=== PATIENT | female | born 1980 | race Two or more races ===

== ENCOUNTER 2016-05-07 14:00 | Emergency (ER) | payer OTHER ==
[~2016-05-07] VITALS: Ht 160 cm; Wt 104.3 kg
[2016-05-07] MEDS ORDERED: ALEV220C2 PO (14:27)
[2016-05-07] MEDS ORDERED: NAPR500T PO (18:59)
[2016-05-07 19:01] VITALS: BP 150/100
--- NOTE | 2016-05-07 21:00 | ECGEPIP ---
Stationary ECG Study [facility] - ED Test Date: 2016-05-07 Pat Name: KATERYNA [place] Department: Room: - Gender: F Ui Application Developer: jon : 1980 Requested By: Dmaaso Esquivel PA-C Order Number: [id number] Reading MD: Maximus Veloz Measurements Intervals Weir Rate: 68 P: 39 OH: 145 QRS: 26 QRSD: 92 T: 26 QT: 382 QTc: 407 Interpretive Statements SINUS RHYTHM Electronically Signed On 05-07-2016 21:00:40 EST by Maximus Veloz
== END 2016-05-07 19:08 | disposition home or self-care (01) ==
LOC: M ED 14:03
DX: R00.2 Palpitations (principal); M25.511 Pain in right shoulder

== ENCOUNTER → 2016-05-23 | Outpatient (REF) | payer OTHER ==
[~2016-05-23] MED LIST: ALEV220C2 PO; NAPR500T PO
[2016-05-23 12:27] LABS: ALBUMIN 3.8 GM/DL (3.2-5.2); ALBUMIN/GLOBULIN RATIO 1.15 (1.00-1.93); ALKALINE PHOSPHATASE 59 U/L (45-117); ALT/SGPT 21 U/L (12-78); ANION GAP 7 MEQ/L (8-16); AST/SGOT 13 U/L (15-37); BILIRUBIN,TOTAL 0.5 MG/DL (0.2-1.0); BLOOD UREA NITROGEN 14 MG/DL (7-18); CARBON DIOXIDE LEVEL 28 MEQ/L (21-32); CHLORIDE LEVEL 106 MEQ/L (98-107); CHOLESTEROL LEVEL 182 MG/DL (<200); CREATININE FOR GFR 0.77 MG/DL (0.55-1.02); FREE T4 0.99 NG/DL (0.76-1.46); GLOMERULAR FILTRATION RATE > 60.0 (>60); GLUCOSE, FASTING 93 MG/DL (70-105); POTASSIUM SERUM 4.5 MEQ/L (3.5-5.1); SODIUM LEVEL 141 MEQ/L (136-145); TOTAL PROTEIN 7.1 GM/DL (6.4-8.2); TRIGLYCERIDES LEVEL 143 MG/DL (<150)
[2016-05-23 12:30] LABS: BASO % 0.5 % (0.0-1.0); EOS % 0.6 % (0.0-3.0); LARGE UNSTAINED CELL # 0.1 K/mm3 (0.0-0.4); LARGE UNSTAINED CELL % 1.1 % (0.0-4.0); LYMPH # 1.6 K/mm3 (1.5-4.5); LYMPH % 24.1 % (24.0-44.0); MEAN CORPUSCULAR HEMOGLOBIN 30.7 pg (27.0-33.0); MEAN CORPUSCULAR HGB CONC 32.7 g/dl (32.0-36.5); MEAN CORPUSCULAR VOLUME 93.9 fl (80.0-96.0); MONO # 0.3 K/mm3 (0.0-0.8); MONO % 4.9 % (0.0-5.0); NEUTROPHILS # 4.6 K/mm3 (1.8-7.7); NEUTROPHILS % 68.8 % (36.0-66.0); PLATELET COUNT, AUTOMATED 269 k/mm3 (150-450); RED CELL DISTRIBUTION WIDTH 12.3 % (11.5-14.5); WHITE BLOOD COUNT 6.7 K/mm3 (4.0-10.0)
== END ==
LOC: M SFHCPLAZ 08:37
PROVIDERS: ATTEND Nurse Practitioner Family
DX: Z00.00 Encounter for general adult medical examination without abnormal findings (principal); R53.83 Other fatigue; Z13.220 Encounter for screening for lipoid disorders; E55.9 Vitamin D deficiency, unspecified

== ENCOUNTER → 2016-11-14 | Outpatient (REF) | payer OTHER | LOC: M SFHCPLAZ 11:33 | PROVIDERS: ATTEND Nurse Practitioner Family | DX: E55.9 Vitamin D deficiency, unspecified (principal); M54.5 Low back pain ==

== ENCOUNTER → 2017-05-03 | Outpatient (CLI) | payer OTHER | LOC: M RAD 16:25 | DX: M54.2 Cervicalgia (principal); M25.512 Pain in left shoulder ==

== ENCOUNTER → 2017-05-03 | Outpatient (REF) | payer OTHER ==
[2017-05-03 18:09] LABS: BASO % 0.4 % (0.0-1.0); EOS % 0.4 % (0.0-3.0); HEMATOCRIT 40.3 % (36.0-47.0); HEMOGLOBIN 13.3 g/dl (12.0-16.0); IMMATURE GRANULOCYTE % 0.1 % (0-3.0); LYMPH # 2.4 10^3/uL (1.5-4.5); LYMPH % 29.9 % (24.0-44.0); MEAN CORPUSCULAR HEMOGLOBIN 30.2 pg (27.0-33.0); MEAN CORPUSCULAR VOLUME 91.4 fl (80.0-96.0); MONO # 0.5 10^3/uL (0.0-0.8); MONO % 6.1 % (0.0-5.0); NEUTROPHILS # 5.1 10^3/uL (1.8-7.7); NEUTROPHILS % 63.1 % (36.0-66.0); PLATELET COUNT, AUTOMATED 262 10^3/uL (150-450); RED BLOOD COUNT 4.41 10^6/uL (4.00-5.40); RED CELL DISTRIBUTION WIDTH 11.9 % (11.5-14.5); WHITE BLOOD COUNT 8.1 10^3/uL (4.0-10.0)
[2017-05-03 19:16] LABS: FREE T4 1.01 NG/DL (0.76-1.46); THYROID STIMULATING HORMONE 0.924 uIU/ML (0.358-3.740)
[2017-05-03 19:47] LABS: TOTAL 25(OH) VITAMIN D 27.1 NG/ML (30.0-100.0); VITAMIN B12 LEVEL 873 PG/ML (247-911)
== END ==
LOC: M SFHCPLAZ 15:51
DX: E55.9 Vitamin D deficiency, unspecified (principal); G50.0 Trigeminal neuralgia; R53.83 Other fatigue

== ENCOUNTER → 2022-10-11 | Outpatient (CLI) | payer BC ==
[~2022-10-11] MED LIST changes: +NAPR-837 PO; -NAPR500T PO
[2022-10-11 15:56] LABS: BASO # 0.1 10^3/uL (0.0-0.2); BASO % 0.6 % (0.0-1.0); EOS % 0.2 % (0.0-3.0); HEMATOCRIT 41.1 % (36.0-47.0); HEMOGLOBIN 13.4 g/dl (12.0-15.5); LYMPH # 2.5 10^3/uL (1.5-5.0); LYMPH % 30.2 % (24.0-44.0); MEAN CORPUSCULAR HEMOGLOBIN 31.3 pg (27.0-33.0); MEAN CORPUSCULAR HGB CONC 32.6 g/dl (32.0-36.5); MONO # 0.5 10^3/uL (0.0-0.8); MONO % 5.6 % (2.0-8.0); NEUTROPHILS # 5.1 10^3/uL (1.5-8.5); NEUTROPHILS % 63.2 % (36.0-66.0); PLATELET COUNT, AUTOMATED 290 10^3/uL (150-450); RED BLOOD COUNT 4.28 10^6/uL (4.00-5.40); WHITE BLOOD COUNT 8.1 10^3/uL (4.0-10.0)
[2022-10-11 16:21] LABS: THYROID STIMULATING HORMONE 0.814 uIU/ML (0.55-4.78); TOTAL 25(OH) VITAMIN D 27.9 NG/ML (20.0-100.0)
[2022-10-11 16:22] LABS: RHEUMATOID FACTOR QUANT < 3.5 IU/ML (<14)
[2022-10-11 16:23] LABS: ALBUMIN 3.7 G/DL (3.2-5.2); ALKALINE PHOSPHATASE 67 U/L (46-116); ALT/SGPT 12 U/L (7.0-40); AST/SGOT < 8 U/L (<34); BILIRUBIN,TOTAL 0.5 MG/DL (0.3-1.2); BLOOD UREA NITROGEN 17 MG/DL (9-23); CALCIUM LEVEL 9.6 MG/DL (8.5-10.1); CARBON DIOXIDE LEVEL 25 MMOL/L (20-31); CHLORIDE LEVEL 107 MMOL/L (98-107); CREATININE FOR GFR 0.78 MG/DL (0.55-1.30); GLOMERULAR FILTRATION RATE > 60.0 (>58); GLUCOSE, FASTING 81 MG/DL (60-100); POTASSIUM SERUM 4.9 MMOL/L (3.5-5.1); SODIUM LEVEL 141 MMOL/L (136-145); TOTAL PROTEIN 6.8 G/DL (5.7-8.2)
[2022-10-11 16:35] LABS: ERYTHROCYTE SEDIMENTATION RATE 38 mm/hr (0-20)
== END ==
LOC: M PLALAB 14:27
PROVIDERS: ATTEND Psychiatry & Neurology Neurology
DX: R51.9 Headache, unspecified (principal)

== ENCOUNTER → 2023-10-04 | Outpatient (CLI) | payer BC ==
[2023-10-04 15:41] LABS: BASO # 0.1 10^3/uL (0.0-0.2); BASO % 0.6 % (0.0-1.0); EOS % 0.4 % (0.0-3.0); HEMATOCRIT 40.3 % (36.0-47.0); HEMOGLOBIN 13.1 g/dl (12.0-15.5); LYMPH # 2.3 10^3/uL (1.5-5.0); LYMPH % 24.7 % (24.0-44.0); MEAN CORPUSCULAR HEMOGLOBIN 30.8 pg (27.0-33.0); MEAN CORPUSCULAR HGB CONC 32.5 g/dl (32.0-36.5); MEAN CORPUSCULAR VOLUME 94.8 fl (80.0-96.0); MONO # 0.8 10^3/uL (0.0-0.8); MONO % 7.9 % (2.0-8.0); NEUTROPHILS # 6.3 10^3/uL (1.5-8.5); NEUTROPHILS % 66.2 % (36.0-66.0); PLATELET COUNT, AUTOMATED 279 10^3/uL (150-450); RED BLOOD COUNT 4.25 10^6/uL (4.00-5.40); WHITE BLOOD COUNT 9.5 10^3/uL (4.0-10.0)
[2023-10-04 15:44] LABS: ALBUMIN 3.8 G/DL (3.2-5.2); ALKALINE PHOSPHATASE 57 U/L (46-116); ALT/SGPT 30 U/L (7.0-40); AST/SGOT 16 U/L (<34); BILIRUBIN,TOTAL 0.4 MG/DL (0.3-1.2); BLOOD UREA NITROGEN 17 MG/DL (9-23); CALCIUM LEVEL 9.3 MG/DL (8.5-10.1); CARBON DIOXIDE LEVEL 26 MMOL/L (20-31); CHLORIDE LEVEL 108 MMOL/L (98-107); GLOMERULAR FILTRATION RATE > 60.0 (>58); GLUCOSE, FASTING 93 MG/DL (60-100); POTASSIUM SERUM 4.3 MMOL/L (3.5-5.1); RHEUMATOID FACTOR QUANT 6.3 IU/ML (<14); SODIUM LEVEL 138 MMOL/L (136-145); TOTAL PROTEIN 6.7 G/DL (5.7-8.2)
[2023-10-04 15:46] LABS: THYROID STIMULATING HORMONE 0.764 uIU/ML (0.55-4.78); TOTAL 25(OH) VITAMIN D 34.7 NG/ML (20.0-100.0)
[2023-10-04 16:03] LABS: ERYTHROCYTE SEDIMENTATION RATE 22 mm/hr (0-20)
[2023-10-08 13:37] LABS: ANA PATTERN Nuclear, Homogeneous (NEGATIVE); ANA SCREEN, IFA POSITIVE (NEGATIVE)
== END ==
LOC: M PLALAB 13:43
PROVIDERS: ATTEND Psychiatry & Neurology Neurology
DX: R51.9 Headache, unspecified (principal)

== ENCOUNTER 2024-03-13 15:46 | Observation (INO) | payer BC ==
[~2024-03-13] VITALS: Ht 162.6 cm; Wt 70.0 kg
[2024-03-13 15:53] VITALS: TEMP 96.4
[2024-03-13 17:06] LABS: BASO % 0.4 % (0.0-1.0); EOS % 0.4 % (0.0-3.0); HEMATOCRIT 38.4 % (36.0-47.0); HEMOGLOBIN 12.6 g/dl (12.0-15.5); LYMPH # 1.7 10^3/uL (1.5-5.0); LYMPH % 17.6 % (24.0-44.0); MEAN CORPUSCULAR HEMOGLOBIN 30.7 pg (27.0-33.0); MEAN CORPUSCULAR HGB CONC 32.8 g/dl (32.0-36.5); MEAN CORPUSCULAR VOLUME 93.4 fl (80.0-96.0); MONO # 0.5 10^3/uL (0.0-0.8); MONO % 5.1 % (2.0-8.0); NEUTROPHILS # 7.5 10^3/uL (1.5-8.5); NEUTROPHILS % 76.3 % (36.0-66.0); PLATELET COUNT, AUTOMATED 261 10^3/uL (150-450); RED BLOOD COUNT 4.11 10^6/uL (4.00-5.40); WHITE BLOOD COUNT 9.8 10^3/uL (4.0-10.0)
[2024-03-13 17:25] LABS: CPK CREATINE PHOSPHOKINASE 49 U/L (34-145)
[2024-03-13 17:32] LABS: BLOOD UREA NITROGEN 11 MG/DL (9-23); CALCIUM LEVEL 6.5 MG/DL (8.5-10.1); CARBON DIOXIDE LEVEL 23 MMOL/L (20-31); CHLORIDE LEVEL 113 MMOL/L (98-107); CK-MB VALUE MASS < 1.0 NG/ML (<3.6); CREATININE FOR GFR 0.53 MG/DL (0.55-1.30); FREE T4 0.82 NG/DL (0.89-1.76); GLOMERULAR FILTRATION RATE > 60.0 (>58); GLUCOSE, FASTING 89 MG/DL (60-100); MAGNESIUM LEVEL 1.3 MG/DL (1.8-2.4); MB/CK RELATIVE INDEX 2.04 (< OR =4); POTASSIUM SERUM 2.9 MMOL/L (3.5-5.1); SODIUM LEVEL 144 MMOL/L (136-145); THYROID STIMULATING HORMONE 0.537 uIU/ML (0.55-4.78)
[2024-03-13] MEDS: CALCIUM GLUCONATE 1,000 MG in DEXTROSE 5% (D5W) MINI-BAG PLU 100 ML IV ONE (17:50)
[2024-03-13] MEDS: KCL 10MEQ/100ML SWI (KRUN) 10 MEQ in IV 1 EA IV ONE (17:51)
[2024-03-13] MEDS: POTASSIUM CHLORIDE 10MEQ SR TABLET PO ONE (17:51)
[2024-03-13 17:53] LABS: HCG, SERUM QUALITATIVE NEGATIVE (NEGATIVE)
[2024-03-13] MEDS: MAG SULF 1GM/100ML (MAG RUN) 1 GM in IV 1 EA IV ONE (17:53)
[2024-03-13 19:22] LABS: CK-MB VALUE MASS < 1.0 NG/ML (<3.6)
[2024-03-13 19:25] LABS: CPK CREATINE PHOSPHOKINASE 68 U/L (34-145); MB/CK RELATIVE INDEX 1.47 (< OR =4)
[2024-03-13] MEDS ORDERED: LISI5TAB11 PO (19:48)
[2024-03-13] MEDS ORDERED: HOME MED LIST COMPLETE! XX SCH (19:50)
[2024-03-13] MEDS ORDERED: MOM 30ML SUSPENSION UDC PO PRN (19:50)
[2024-03-13 21:25] LABS: APPEARANCE, URINE CLEAR (CLEAR); BACTERIA, URINE AUTO 1+ (NEGATIVE); BILIRUBIN, URINE AUTO NEGATIVE (NEGATIVE); BLOOD, URINE BLOOD NEGATIVE (NEGATIVE); COLOR, URINE STRAW (YELLOW); GLUCOSE, URINE (UA) AUTO NEGATIVE (NEGATIVE); KETONE, URINE AUTO NEGATIVE (NEGATIVE); LEUKOCYTE ESTERASE, URINE AUTO NEGATIVE (NEGATIVE); NITRITE, URINE AUTO NEGATIVE (NEGATIVE); PROTEIN, URINE AUTO NEGATIVE (NEGATIVE); RBC, URINE AUTO 0 /HPF (0-3); SPECIFIC GRAVITY URINE AUTO 1.009 (1.002-1.035); SQUAMOUS EPITHELIAL CELL UR AU 1 /HPF (0-6); UROBILINOGEN, URINE AUTO 0.2 mg/dL (0.0-2.0); WBC, URINE AUTO 1 /HPF (0-3)
[2024-03-13 21:28] LABS: PHOSPHORUS LEVEL 4.2 MG/DL (2.5-4.9)
[2024-03-13 22:05] LABS: AMPHETAMINES LEVEL URINE NEGATIVE (NEGATIVE); BENZODIAZEPINES URINE NEGATIVE (NEGATIVE)
[2024-03-13 22:06] LABS: BARBITURATES URINE NEGATIVE (NEGATIVE); CANNABINOIDS URINE NEGATIVE (NEGATIVE); COCAINE METABOLITE URINE NEGATIVE (NEGATIVE); METHADONE URINE NEGATIVE (NEGATIVE); OPIATES URINE NEGATIVE (NEGATIVE); PHENCYCLIDINE URINE NEGATIVE (NEGATIVE)
[2024-03-13] MEDS: MAG SULF 1GM/100ML (MAG RUN) 1 GM in IV 1 EA IV SCH (23:05)
[2024-03-13] MEDS: ACETAMINOPHEN 325 MG TAB PO PRN (23:50)
[2024-03-14] MEDS: KCL 10MEQ IN D5/0.45NS 1000ML 1,000 ML IV SCH (01:15)
[2024-03-14 04:30] VITALS: O2SAT 99
[2024-03-14 05:10] LABS: HEMATOCRIT 37.8 % (36.0-47.0); HEMOGLOBIN 12.5 g/dl (12.0-15.5); MEAN CORPUSCULAR HEMOGLOBIN 30.9 pg (27.0-33.0); MEAN CORPUSCULAR HGB CONC 33.1 g/dl (32.0-36.5); MEAN CORPUSCULAR VOLUME 93.6 fl (80.0-96.0); PLATELET COUNT, AUTOMATED 248 10^3/uL (150-450); RED BLOOD COUNT 4.04 10^6/uL (4.00-5.40)
[2024-03-14 05:40] LABS: ALBUMIN 3.2 G/DL (3.2-5.2); ALKALINE PHOSPHATASE 60 U/L (35-104); ALT/SGPT 17 U/L (7.0-40); AST/SGOT 14 U/L (<34); BILIRUBIN,TOTAL 0.4 MG/DL (0.3-1.2); BLOOD UREA NITROGEN 9 MG/DL (9-23); CALCIUM LEVEL 9.2 MG/DL (8.5-10.1); CARBON DIOXIDE LEVEL 29 MMOL/L (20-31); CHLORIDE LEVEL 104 MMOL/L (98-107); CREATININE FOR GFR 0.74 MG/DL (0.55-1.30); GLOMERULAR FILTRATION RATE > 60.0 (>58); GLUCOSE, FASTING 108 MG/DL (60-100); MAGNESIUM LEVEL 2.2 MG/DL (1.8-2.4); POTASSIUM SERUM 3.8 MMOL/L (3.5-5.1); SODIUM LEVEL 138 MMOL/L (136-145); TOTAL PROTEIN 6.8 G/DL (5.7-8.2)
[2024-03-14 10:05] VITALS: BP_SYST 123; BP_SYST 137; BP_SYST 143; BP_DIAS 67; BP_DIAS 72; BP_DIAS 73
[2024-03-14] MEDS ORDERED: lisinopriL 5 MG TAB PO SCH (21:00)
== END 2024-03-14 11:54 | disposition home or self-care (01) ==
LOC: M ED 15:46 → EDBD 15:46 → M ED INP 15:47
PROVIDERS: ADMIT Student in an Organized Health Care Education/Training Program; ATTEND Student in an Organized Health Care Education/Training Program
DX: R55 Syncope and collapse (principal); E87.6 Hypokalemia; E83.42 Hypomagnesemia; R94.6 Abnormal results of thyroid function studies; I10 Essential (primary) hypertension; R42 Dizziness and giddiness; R26.89 Other abnormalities of gait and mobility; R00.2 Palpitations; R11.2 Nausea with vomiting, unspecified; Z80.0 Family history of malignant neoplasm of digestive organs; Z82.69 Family history of other diseases of the musculoskeletal system and connective tissue; Z79.899 Other long term (current) drug therapy
CPT/HCPCS: 36415; 70450; 71046; 80048; 80053; 80307; 81001; 82550; 82553; 83735; 84100; 84439; 84443; 84484; 84703; 85025; 85027; 93005; 93041; 93880; 94760; 96365; 96367; 96375; 99285; J0612; J3475

== ENCOUNTER → 2024-10-22 | Outpatient (CLI) | payer BC ==
[~2024-10-22] MED LIST changes: +LISI5TAB11 PO
== END ==
LOC: M SLEEP HO 11:07
PROVIDERS: ATTEND Internal Medicine Cardiovascular Disease
DX: R40.0 Somnolence (principal); R55 Syncope and collapse

== ENCOUNTER → 2024-10-22 | Outpatient (CLI) | payer BC | LOC: M EKG 12:03 | PROVIDERS: ATTEND Internal Medicine Cardiovascular Disease | DX: R55 Syncope and collapse (principal) ==